=== PATIENT | female | born 1995 | race Caucasian/White ===

== ENCOUNTER 2019-11-10 07:06 | Emergency (ER) | payer BC ==
[2019-11-10] MEDS ORDERED: Acetaminophen 500 MG Tab PO ONE (07:29)
--- NOTE | 2019-11-10 07:35 | EDM.PDOC ---
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 LMP 09/07/2019. Began spotting on Monday and over last 24 hours has had increased bleeding w/ clots and pink tissue and lower abdominal cramping pains. Had US on 11/07 w/ FHR 125 and LIUP. Notes bhcg on 10/30 was 3284. Lower Pelvic Pain Score (Numeric/FACES): 6 - Related Data Allergies Allergy/AdvReac Type Severity Reaction Status Date / Time sulfamethoxazole Allergy Other Verified 11/10/19 07:29 [From Bactrim] trimethoprim [From Bactrim] Allergy Other Verified 11/10/19 07:29 Home Meds: Home Meds No122/Iron/Folic Acid [ Multi Tablet] 1 each PO DAILY 11/10/19 [History] ED ROS GENERAL - Review of Systems Review Of Systems: Comprehensive ROS is negative, except as noted in HPI. ED EXAM - Physical Exam Exam: See Below Exam Limited By: No Limitations General Appearance: Alert, WD/WN, No Apparent Distress Head: Atraumatic, Normocephalic Respiratory/Chest: No Respiratory Distress, No Accessory Muscle Use Cardiovascular: Normal Peripheral Pulses GI/Abdominal Exam: Soft, Non-Tender (Female) Exam: Other (patient elects to defer exam) Neurological: Alert Psychiatric: Tearful Skin Exam: Warm, Dry Course - Vital Signs Last Recorded V/S: Last Vital Signs Temp 97.6 F 11/10/19 07:30 Pulse 90 11/10/19 09:57 Resp 15 11/10/19 09:57 BP 135/69 11/10/19 09:57 Pulse Ox 98 11/10/19 09:57 - Orders/Labs/Meds Orders: Active Orders 24 hr Category Date Time Status OB 1st Tri Sgl 1st Gest [US] Stat Exams 11/10/19 07:29 Taken Labs: Laboratory Tests 11/10/19 11/10/19 11/10/19 Range/Units 08:33 08:33 08:33 WBC 10.87 (4.0-11.0) K/uL RBC 4.41 (4.30-5.90) M/uL Hgb 13.3 (12.0-16.0) g/dL Hct 38.6 (36.0-46.0) % MCV 87.5 (80.0-98.0) fL MCH 30.2 (27.0-32.0) pg MCHC 34.5 (31.0-37.0) g/dL RDW Std Deviation 37.6 (28.0-62.0) fl RDW Coeff of Cintia 12 (11.0-15.0) % Plt Count 269 (150-400) K/uL MPV 10.00 (7.40-12.00) fL Neut % (Auto) 68.1 (48.0-80.0) % Lymph % (Auto) 24.1 (16.0-40.0) % Tucker % (Auto) 7.2 (0.0-15.0) % Eos % (Auto) 0.4 (0.0-7.0) % Baso % (Auto) 0.2 (0.0-1.5) % Neut # (Auto) 7.4 H (1.4-5.7) K/uL Lymph # (Auto) 2.6 H (0.6-2.4) K/uL Tucker # (Auto) 0.8 (0.0-0.8) K/uL Eos # (Auto) 0.0 (0.0-0.7) K/uL Baso # (Auto) 0.0 (0.0-0.1) K/uL Nucleated RBC % 0.0 /100WBC Nucleated RBCs # 0 K/uL Sodium 137 (136-145) mmol/L Potassium 3.9 (3.5-5.1) mmol/L Chloride 101 (98-107) mmol/L Carbon Dioxide 24.5 (21.0-32.0) mmol/L BUN 8 (7.0-18.0) mg/dL Creatinine 0.9 (0.6-1.0) mg/dL Est Cr Clr Drug Dosing 79.04 mL/min Estimated GFR (MDRD) > 60.0 ml/min Glucose 80 (74-106) mg/dL Calcium 9.1 (8.5-10.1) mg/dL HCG, Quant 5265.0 mIU/mL Urine Color Urine Appearance Urine pH (5.0-8.0) Ur Specific [place] (1.001-1.035) Urine Protein (NEGATIVE) mg/dL Urine Glucose (UA) (NEGATIVE) mg/dL Urine Ketones (NEGATIVE) mg/dL Urine Occult Blood (NEGATIVE) Urine Nitrite (NEGATIVE) Urine Bilirubin (NEGATIVE) Urine Ictotest Urine Urobilinogen (<2.0) EU/dL Ur Leukocyte Esterase (NEGATIVE) Urine RBC (0-2/HPF) Urine WBC (0-5/HPF) Ur Epithelial Cells (NONE-FEW) Amorphous Sediment (NEGATIVE) Urine Bacteria (NEGATIVE) Blood Type 11/10/19 11/10/19 Range/Units 08:33 08:50 WBC (4.0-11.0) K/uL RBC (4.30-5.90) M/uL Hgb (12.0-16.0) g/dL Hct (36.0-46.0) % MCV (80.0-98.0) fL MCH (27.0-32.0) pg MCHC (31.0-37.0) g/dL RDW Std Deviation (28.0-62.0) fl RDW Coeff of Cintia (11.0-15.0) % Plt Count (150-400) K/uL MPV (7.40-12.00) fL Neut % (Auto) (48.0-80.0) % Lymph % (Auto) (16.0-40.0) % Tucker % (Auto) (0.0-15.0) % Eos % (Auto) (0.0-7.0) % Baso % (Auto) (0.0-1.5) % Neut # (Auto) (1.4-5.7) K/uL Lymph # (Auto) (0.6-2.4) K/uL Tucker # (Auto) (0.0-0.8) K/uL Eos # (Auto) (0.0-0.7) K/uL Baso # (Auto) (0.0-0.1) K/uL Nucleated RBC % /100WBC Nucleated RBCs # K/uL Sodium (136-145) mmol/L Potassium (3.5-5.1) mmol/L Chloride (98-107) mmol/L Carbon Dioxide (21.0-32.0) mmol/L BUN (7.0-18.0) mg/dL Creatinine (0.6-1.0) mg/dL Est Cr Clr Drug Dosing mL/min Estimated GFR (MDRD) ml/min Glucose (74-106) mg/dL Calcium (8.5-10.1) mg/dL HCG, Quant mIU/mL Urine Color YELLOW Urine Appearance CLOUDY Urine pH 5.0 (5.0-8.0) Ur Specific [place] >= 1.030 (1.001-1.035) Urine Protein 30 H (NEGATIVE) mg/dL Urine Glucose (UA) NEGATIVE (NEGATIVE) mg/dL Urine Ketones NEGATIVE (NEGATIVE) mg/dL Urine Occult Blood LARGE H (NEGATIVE) Urine Nitrite POSITIVE H (NEGATIVE) Urine Bilirubin SMALL H (NEGATIVE) Urine Ictotest NEGATIVE Urine Urobilinogen 0.2 (<2.0) EU/dL Ur Leukocyte Esterase TRACE H (NEGATIVE) Urine RBC 8-10 (0-2/HPF) Urine WBC 3-5 (0-5/HPF) Ur Epithelial Cells OCCASIONAL (NONE-FEW) Amorphous Sediment MODERATE (NEGATIVE) Urine Bacteria 2+ H (NEGATIVE) Blood Type A POSITIVE Meds: Medications Discontinued Medications Generic Name Dose Route Start Last Admin Trade Name Freq PRN Reason Stop Dose Admin Acetaminophen 1,000 mg 11/10/19 07:29 11/10/19 08:40 Tylenol Extra Strength PO 11/10/19 07:30 1,000 mg ONETIME ONE Administration - Re-Assessments/Exams Free Text/Narrative Re-Assessment/Exam: 11/10/19 07:34 Patient presents with vaginal bleeding in first trimester. Will get labs including bhcg level. Will get pelvic US to assess viability. Free Text/Narrative Re-Assessment/Exam: 11/10/19 10:11 No FHR on US imaging. No evidence ectopic. Will d/c with OB f/u, return precautions discussed at length. 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 Departure - Departure Time of Disposition: 10:12 Disposition: Home, Self-Care 01 Condition: Good Clinical Impression: Incomplete - Discharge Information Instructions: Incomplete Miscarriage Referrals: PMD, PMD [Other] Forms: ED Department Discharge Additional Instructions: The following information is given to patients seen in the emergency department who are being discharged to home. This information is to outline your options for follow-up care. We provide all patients seen in our emergency department with a follow-up referral. The need for follow-up, as well as the timing and circumstances, are variable depending upon the specifics of your emergency department visit. If you don't have a primary care physician on staff, we will provide you with a referral. We always advise you to contact your personal physician following an emergency department visit to inform them of the circumstance of the visit and for follow-up with them and/or the need for any referrals to a consulting specialist. The emergency department will also refer you to a specialist when appropriate. This referral assures that you have the opportunity for follow-up care with a specialist. All of these measure are taken in an effort to provide you with optimal care, which includes your follow-up. Under all circumstances we always encourage you to contact your private physician who remains a resource for coordinating your care. When calling for follow-up care, please make the office aware that this follow-up is from your recent emergency room visit. If for any reason you are refused follow-up, please contact the [facility] Emergency Department at and asked to speak to the emergency department charge nurse. Sepsis Event Note (ED) - Focused Exam Vital Signs: Vital Signs Temp Pulse Resp BP Pulse Ox 11/10/19 09:57 90 15 135/69 98 11/10/19 07:30 97.6 F 119 H 15 151/89 H 96 - My Orders Last 24 Hours: My Active Orders 11/10/19 07:29 OB 1st Tri Sgl 1st Gest [US] Stat - Assessment/Plan Last 24 Hours: My Active Orders 11/10/19 07:29 OB 1st Tri Sgl 1st Gest [US] Stat
[2019-11-10 09:37] LABS: BLOOD UREA NITROGEN,BUN 8 mg/dL (7.0-18.0); CARBON DIOXIDE,CO2 24.5 mmol/L (21.0-32.0); CHLORIDE,CL 101 mmol/L (98-107); GLUCOSE RANDOM 80 mg/dL (74-106); POTASSIUM,K 3.9 mmol/L (3.5-5.1); SODIUM,NA 137 mmol/L (136-145)
--- NOTE | 2019-11-10 10:56 | US ---
1st trimester obstetrical ultrasound: Multiple real-time images were obtained transvaginally. Comparison: No previous study for current . Dates: Current ultrasound: JELLY 07/01/20, gestational age 6 weeks 4 days Single intrauterine gestation is seen. pole is identified. Yolk sac is noted. Minimal subchorionic hemorrhage is noted. Ovaries are within normal limits. Measurements: [place]-rump length: 0.68 cm - 6 weeks 4 days Heart rate: None was measured Impression: 1. Single intrauterine gestation. Dates as noted above. 2. Small subchorionic hemorrhage. 3. No heart activity is seen. If patient does not miscarry, recommend repeat study in 11 days to confirm nonviable . Diagnostic code #3 This report was dictated in MDT
== END 2019-11-10 10:24 | disposition home or self-care (01) ==
LOC: MW.ED 07:06
DX: O03.4 Incomplete spontaneous abortion without complication (principal); Z88.2 Allergy status to sulfonamides
CPT/HCPCS: 36415; 76801; 80048; 81001; 84702; 85025; 86900; 86901; 99284; A9270; 99282

== ENCOUNTER 2021-01-18 05:15 | Inpatient (IN) | payer BC ==
[2021-01-18] MEDS ORDERED: Misoprostol 25 MCG (1/4 of 100 MCG) Tab VAG PRN (05:19)
[2021-01-18] MEDS ORDERED: Lidocaine 1% 50 ML MDV INJECT PRN (05:19)
[2021-01-18] MEDS ORDERED: Sodium Chloride 0.9% 2.5 ML Syringe FLUSH PRN (05:19)
[2021-01-18] MEDS ORDERED: Water For Irrigation,Sterile 1,000 ML Container IRR PRN (05:19)
[2021-01-18] MEDS ORDERED: Methylergonovine 0.2 MG/1 ML Amp IM PRN (05:19)
[2021-01-18] MEDS ORDERED: Sodium Chloride 0.9% 10 ML Syringe FLUSH PRN (05:19)
[2021-01-18] MEDS ORDERED: Terbutaline 1 MG/ML SDV SUBCUT PRN (05:19)
[2021-01-18] MEDS ORDERED: Nalbuphine 10 MG/1 ML Vial IVPUSH PRN (05:19)
[2021-01-18] MEDS ORDERED: Misoprostol 200 MCG Tab PO PRN (05:19)
[2021-01-18] MEDS ORDERED: Sodium Chloride 0.9% 10 ML SDV IV PRN (05:19)
[2021-01-18] MEDS ORDERED: Carboprost Tromethamine 250 MCG/1 ML Amp IM PRN (05:19)
[2021-01-18] MEDS ORDERED: Tranexamic Acid 1,000 MG in Sodium Chloride 0.9% 100 ML IV PRN (05:19)
[2021-01-18] MEDS ORDERED: Ondansetron 4 MG/2 ML SDV IVPUSH PRN (05:19)
[2021-01-18] MEDS ORDERED: Butorphanol 1 MG/ML SDV IVPUSH PRN (05:19)
[2021-01-18] MEDS ORDERED: Oxytocin/0.9 % Sodium Chloride 30 UNIT/500 ML BAG IV SCH ×2 (05:30→11:00)
[2021-01-18] MEDS: Misoprostol 25 MCG (1/4 of 100 MCG) Tab VAG PRN ×3 (06:01→14:15)
[2021-01-18] MEDS ORDERED: ePHEDrine 50 MG/ML SDV IVPUSH PRN (19:00)
[2021-01-18] MEDS ORDERED: Ropivacaine 0.2% 2MG/ML 200 ML Bag EPIDUR SCH (19:00)
[2021-01-18] MEDS: Lactated Ringers 1,000 ML IV SCH ×3 (19:08→21:18)
[2021-01-18] MEDS ORDERED: Ropivacaine HCl/PF 200 ML ONE (20:14)
--- NOTE | 2021-01-18 20:45 | PCM.PREANE ---
Preanesthetic Assessment - Anesthesia/Transfusion/Family Hx Anesthesia History: Prior Anesthesia Without Reaction Family History of Anesthesia Reaction: No - Review of Systems General: No Symptoms Pulmonary: No Symptoms Cardiovascular: Other (Orthostatic Hypotension) Gastrointestinal: No Symptoms, Other (GERD) Neurological: No Symptoms Other: Reports: None - Physical Assessment NPO Status Date: 01/18/21 NPO Status Time: 05:00 Height: 1.57 m Weight: 78.471 kg ASA Class: 2 Mental Status: Alert & Oriented x3 Airway Class: Mallampati = 2 Dentition: Reports: Normal Dentition Thyro-Mental Finger Breadths: 3 Mouth Opening Finger Breadths: 3 ROM/Head Extension: Full Lungs: Clear to Auscultation, Normal Respiratory Effort Cardiovascular: Regular Rate, Regular Rhythm - Lab Values: Laboratory Last Values WBC 10.19 K/uL (4.0-11.0) 01/18/21 05:30 RBC 3.91 M/uL (4.30-5.90) L 01/18/21 05:30 Hgb 11.8 g/dL (12.0-16.0) L 01/18/21 05:30 Hct 34.2 % (36.0-46.0) L 01/18/21 05:30 MCV 87.5 fL (80.0-98.0) 01/18/21 05:30 MCH 30.2 pg (27.0-32.0) 01/18/21 05:30 MCHC 34.5 g/dL (31.0-37.0) 01/18/21 05:30 RDW Std Deviation 38.9 fl (28.0-62.0) 01/18/21 05:30 RDW Coeff of Cintia 12 % (11.0-15.0) 01/18/21 05:30 Plt Count 211 K/uL (150-400) 01/18/21 05:30 MPV 10.10 fL (7.40-12.00) 01/18/21 05:30 Nucleated RBC % 0.0 /100WBC 01/18/21 05:30 Nucleated RBCs # 0 K/uL 01/18/21 05:30 Blood Type A POSITIVE 01/18/21 05:30 Antibody Screen NEGATIVE 01/18/21 05:30 - Allergies Allergies/Adverse Reactions: Allergies Allergy/AdvReac Type Severity Reaction Status Date / Time sulfamethoxazole Allergy Other Verified 01/18/21 05:40 [From Bactrim] trimethoprim [From Bactrim] Allergy Other Verified 01/18/21 05:40 - Blood Blood Available: Yes Product(s) Available: PRBC (Type and Screen) - Anesthesia Plan Pre-Op Medication Ordered: None - Acknowledgements Anesthesia Type Planned: Epidural Pt an Appropriate Candidate for the Planned Anesthesia: Yes Alternatives and Risks of Anesthesia Discussed w Pt/Guardian: Yes Pt/Guardian Understands and Agrees with Anesthesia Plan: Yes PreAnesthesia Questionnaire HEENT History: Reports: None Cardiovascular History: Reports: None Respiratory History: Reports: None Gastrointestinal History: Reports: None Genitourinary History: Reports: None [employer] History: Reports: Ectopic Other OB/BYN History: Methotrexate Therapy Musculoskeletal History: Reports: None Neurological History: Reports: None Psychiatric History: Reports: None Endocrine/Metabolic History: Reports: None Hematologic History: Reports: None Immunologic History: Reports: None Oncologic (Cancer) History: Reports: None Dermatologic History: Reports: None - Past Surgical History Head Surgeries/Procedures: Reports: None HEENT Surgical History: Reports: Other (See Below) Other HEENT Surgeries/Procedures: [place] Teeth Extraction Cardiovascular Surgical History: Reports: None Respiratory Surgical History: Reports: None GI Surgical History: Reports: None Female Surgical History: Reports: None Endocrine Surgical History: Reports: None Neurological Surgical History: Reports: None Musculoskeletal Surgical History: Reports: None Oncologic Surgical History: Reports: None Dermatological Surgical History: Reports: None - SUBSTANCE USE Tobacco Use Status *Q: Former Tobacco User Tobacco Use Within Last Twelve Months: No Second Hand Smoke Exposure: No Recreational Drug Use History: No - HOME MEDS Home Medications: Home Meds Nitrofurantoin Monohyd/M-Cryst [Macrobid 100 mg Capsule] 100 mg PO BID 7 Days #14 capsule 11/10/19 [Rx] No122/Iron/Folic Acid [ Multi Tablet] 1 each PO DAILY 11/10/19 [History] - CURRENT (IN HOUSE) MEDS Current Meds: Current Medications Butorphanol Tartrate (Butorphanol 1 Mg/Ml Sdv) 1 mg IVPUSH Q1H PRN PRN Reason: Pain (severe 7-10) Last Admin: 01/18/21 17:20 Dose: 1 mg Documented by: Carboprost Tromethamine (Carboprost Tromethamine 250 Mcg/1 Ml Amp) 250 mcg IM ASDIRECTED PRN PRN Reason: Post Hemorrhage Oxytocin/Sodium Chloride (Oxytocin 30 Unit In Ns 0.9% 500 Ml Premix) 30 unit in 500 mls @ 2 mls/hr IV TITRATE DOMINIQUE; Protocol Tranexamic Acid 1,000 mg/ (Sodium Chloride) 110 mls @ 660 mls/hr IV ONETIME PRN PRN Reason: Bleeding Oxytocin/Sodium Chloride (Oxytocin 30 Unit In Ns 0.9% 500 Ml Premix) 30 unit in 500 mls @ 2 mls/hr IV TITRATE DOMINIQUE; Protocol Lactated Ringer's (Ringers, Lactated) 1,000 mls @ 150 mls/hr IV ASDIRECTED DOMINIQUE Last Admin: 01/18/21 20:18 Dose: 999 mls/hr Documented by: Lidocaine HCl (Lidocaine 1% 50 Ml Mdv) 50 ml INJECT ONETIME PRN PRN Reason: Laceration repair Methylergonovine Maleate (Methylergonovine 0.2 Mg/1 Ml Amp) 0.2 mg IM ASDIRECTED PRN PRN Reason: Post Hemorrhage Misoprostol (Misoprostol 200 Mcg Tab) 200 mcg PO ONETIME PRN PRN Reason: Post Hemorrhage Misoprostol (Misoprostol 25 Mcg (1/4 Of 100 Mcg) Tab) 25 mcg VAG ONETIME PRN PRN Reason: Cervical Ripening Misoprostol (Misoprostol 25 Mcg (1/4 Of 100 Mcg) Tab) 25 mcg VAG Q4H PRN PRN Reason: Cervical Ripening Last Admin: 01/18/21 14:15 Dose: 25 mcg Documented by: Nalbuphine HCl (Nalbuphine 10 Mg/1 Ml Vial) 10 mg IVPUSH Q1H PRN PRN Reason: Pain (severe 7-10) Ondansetron HCl (Ondansetron 4 Mg/2 Ml Sdv) 4 mg IVPUSH Q4H PRN PRN Reason: Nausea/Vomiting Sodium Chloride (Sodium Chloride 0.9% 10 Ml Syringe) 10 ml FLUSH ASDIRECTED PRN PRN Reason: Keep Vein Open Sodium Chloride (Sodium Chloride 0.9% 2.5 Ml Syringe) 2.5 ml FLUSH ASDIRECTED PRN PRN Reason: Keep Vein Open Sodium Chloride (Sodium Chloride 0.9% 10 Ml Sdv) 10 ml IV ASDIRECTED PRN PRN Reason: IV Use Sterile Water (Water For Irrigation,Sterile 1,000 Ml Container) 1,000 ml IRR ASDIRECTED PRN PRN Reason: delivery Terbutaline Sulfate (Terbutaline 1 Mg/Ml Sdv) 0.25 mg SUBCUT ASDIRECTED PRN PRN Reason: Tacysystole Discontinued Medications Ropivacaine (Naropin 0.2%) Confirm Administered Dose 200 mls @ as directed .ROUTE .STK-MED ONE Stop: 01/18/21 20:15 Miscellaneous Medication (Phenylephrine Hcl In 0.9% Nacl 1 Mg/10 Ml Syringe) Confirm Administered Dose 1 mg .ROUTE .STK-MED ONE Stop: 01/18/21 20:28
--- NOTE | 2021-01-18 20:48 | PCM.POSTAN ---
POST ANESTHESIA ASSESSMENT - MENTAL STATUS Mental Status: Alert - RESPIRATORY Respiratory Status: Respiratory Rate WNL, Airway Patent, O2 Saturation Stable - CARDIOVASCULAR CV Status: Pulse Rate WNL, Blood Pressure Stable - GASTROINTESTINAL GI Status: No Symptoms - POST OP HYDRATION Hydration Status: Adequate & Stable
--- NOTE | 2021-01-18 20:48 | PCM.SN.2 ---
Time Documentation - Pre-Procedure Checklist Attending Provider Aware: Yes Chart Reviewed: Yes Consent Signed: Yes Labs Reviewed: Yes VS/FHR Reviewed: Yes Patient Identification Confirmation Method: Reports: Chart Visual, Verbal Patient Pt an Appropriate Candidate for the Planned Anesthesia: Yes Alternatives and Risks of Anesthesia Discussed w Pt/Guardian: Yes - Procedure Procedure Start Date: 01/18/21 Procedure Start Time: 19:[address]: Reports: Blood Pressure, Heart Rate, SPO2 Functional IV: Yes Safety Measures: Reports: Patient Identified, Procedure Verified, Site Verified, Procedure Time Out Patient Position: Reports: Sitting Prep: Reports: Betadine x3 Local Anesthetic: Reports: Intradermal Wheal w Lidocaine 1% (3 ml) Regional Placement Level: Reports: L3-4 Needle: Reports: 17 g Touhy Approach: Reports: Midline Technique: Reports: KISHAN Glass Syringe KISHAN Needle Depth (cm): 5 cm Parasthesia: Reports: None Fluid Obtained: Reports: None Catheter Depth at Skin (cm): 13 cm Test Dose Time: 20:10 Test Dose Medication: Reports: Lidocaine 1.5% w Epinephrine 1:200,000 Test Dose Response: Reports: Negative Loading Dose Time: 20:20 Loading Dose Medication: Ropivicaine 0.2% Loading Dose Patient Position: Supine Continuous Infusion Start Time: 20:21 Continuous Infusion Medication: Ropivicaine 0.2% Continuous Infusion Rate: 12 Continuous Infusion PCS Bolus Option: 4 Continuous Infusion Lockout Dose (cc/hr): 15 Patient Position Post Placement: Reports: Supline/LEANNA Post-procedure Pain Level: 3 Level Achieved: T6 VS and FHR Monitored in Unit Post Placement: Yes Procedure End Date: 01/18/21 Procedure End Time: 20:57 Procedure Comment: Sterile technique used throughout
[2021-01-18] MEDS ORDERED: ePHEDrine 50 MG/ML SDV ONE (22:41)
[2021-01-18] MEDS ORDERED: Glycopyrrolate 0.2 MG/ML SDV ONE (22:42)
[2021-01-18] MEDS ORDERED: Lidocaine 2% with EPINEPHrine 1:200,000 20 ML SDV ONE (22:42)
[2021-01-18] MEDS ORDERED: Sodium Chloride 0.9% 20 ML ONE (22:42)
[2021-01-19] MEDS ORDERED: oxyCODONE 5 MG Tab PO PRN (00:48)
[2021-01-19] MEDS ORDERED: Bisacodyl 10 MG Supp RECTAL PRN (00:48)
[2021-01-19] MEDS ORDERED: Benzocaine/Menthol 20%-0.5% Spray 78 GM Cannister TOP PRN (00:48)
[2021-01-19] MEDS ORDERED: Lanolin 100% Cream 7 GM Tube TOP PRN (00:48)
--- NOTE | 2021-01-19 00:54 | PCM.DEL ---
L & D Note - General Info Date of Service: 01/19/21 Mother's Due Date: 01/25/21 - Delivery Note Labor: Spontaneous Cervical Ripening Method: Balloon Device, Misoprostil (x3 doses) Delivery Outcome: Livebirth Infant Delivery Method: Spontaneous Vaginal Delivery-Single Infant Delivery Mode: Spontaneous Presentation: Vertex Nuchal Cord: Present (x1), Reduced (after delivery of body) Anesthesia Type: Epidural Amniotic Fluid Description: Clear Episiotomy Type: None Laceration: 1st Degree, Perineal Suture type: Vicryl Suture size: 3-0 Placenta: Intact, Spontaneous Cord: 3 Vessels Estimated Blood Loss: 400 Resuscitation Needed: No : Stimulated, Warmed Score 1 min: 8 Score 5 min: 9 Delivery Comments (Free Text/Narrative):: Live female infant, weight 3060g - General Info Date of Service: 01/19/21 - Patient Data Weight - Most Recent: 78.471 kg Lab Results Last 24 Hours: Laboratory Results - last 24 hr 01/18/21 01/18/21 Range/Units 05:30 05:30 WBC 10.19 (4.0-11.0) K/uL RBC 3.91 L (4.30-5.90) M/uL Hgb 11.8 L (12.0-16.0) g/dL Hct 34.2 L (36.0-46.0) % MCV 87.5 (80.0-98.0) fL MCH 30.2 (27.0-32.0) pg MCHC 34.5 (31.0-37.0) g/dL RDW Std Deviation 38.9 (28.0-62.0) fl RDW Coeff of [place] 12 (11.0-15.0) % Plt Count 211 (150-400) K/uL MPV 10.10 (7.40-12.00) fL Nucleated RBC % 0.0 /100WBC Nucleated RBCs # 0 K/uL Blood Type A POSITIVE Antibody Screen NEGATIVE Med Orders - Current: Current Medications Acetaminophen (Acetaminophen 500 Mg Tab) 1,000 mg PO Q6H PRN PRN Reason: Pain (mild 1-3) Benzocaine/Menthol (Benzocaine/Menthol 20%-0.5% [place] 78 Gm Cannister) 78 gm TOP ASDIRECTED PRN PRN Reason: Perineal Comfort Measure Bisacodyl (Bisacodyl 10 Mg Supp) 10 mg RECTAL ONETIME PRN PRN Reason: Constipation Butorphanol Tartrate (Butorphanol 1 Mg/Ml Sdv) 1 mg IVPUSH Q1H PRN PRN Reason: Pain (severe 7-10) Last Admin: 01/18/21 17:20 Dose: 1 mg Documented by: Carboprost Tromethamine (Carboprost Tromethamine 250 Mcg/1 Ml Amp) 250 mcg IM ASDIRECTED PRN PRN Reason: Post Hemorrhage Docusate Sodium (Docusate Sodium 100 Mg Cap) 100 mg PO Q12H PRN PRN Reason: Constipation Emollient Ointment (Lanolin 100% Cream 7 Gm Tube) 0 gm TOP ASDIRECTED PRN PRN Reason: Sore Nipples Oxytocin/Sodium Chloride (Oxytocin 30 Unit In Ns 0.9% 500 Ml Premix) 30 unit in 500 mls @ 2 mls/hr IV TITRATE DOMINIQUE; Protocol Tranexamic Acid 1,000 mg/ (Sodium Chloride) 110 mls @ 660 mls/hr IV ONETIME PRN PRN Reason: Bleeding Oxytocin/Sodium Chloride (Oxytocin 30 Unit In Ns 0.9% 500 Ml Premix) 30 unit in 500 mls @ 2 mls/hr IV TITRATE DOMINIQUE; Protocol Lactated Ringer's (Ringers, Lactated) 1,000 mls @ 150 mls/hr IV ASDIRECTED DOMINIQUE Last Admin: 01/18/21 21:18 Dose: 150 mls/hr Documented by: Ibuprofen (Ibuprofen 800 Mg Tab) 800 mg PO Q8H PRN PRN Reason: Cramping Lidocaine HCl (Lidocaine 1% 50 Ml Mdv) 50 ml INJECT ONETIME PRN PRN Reason: Laceration repair Methylergonovine Maleate (Methylergonovine 0.2 Mg/1 Ml Amp) 0.2 mg IM ASDIRECTED PRN PRN Reason: Post Hemorrhage Misoprostol (Misoprostol 200 Mcg Tab) 200 mcg PO ONETIME PRN PRN Reason: Post Hemorrhage Misoprostol (Misoprostol 25 Mcg (1/4 Of 100 Mcg) Tab) 25 mcg VAG ONETIME PRN PRN Reason: Cervical Ripening Misoprostol (Misoprostol 25 Mcg (1/4 Of 100 Mcg) Tab) 25 mcg VAG Q4H PRN PRN Reason: Cervical Ripening Last Admin: 01/18/21 14:15 Dose: 25 mcg Documented by: Nalbuphine HCl (Nalbuphine 10 Mg/1 Ml Vial) 10 mg IVPUSH Q1H PRN PRN Reason: Pain (severe 7-10) Ondansetron HCl (Ondansetron 4 Mg/2 Ml Sdv) 4 mg IVPUSH Q4H PRN PRN Reason: Nausea/Vomiting Oxycodone HCl (Oxycodone 5 Mg Tab) 5 mg PO Q2H PRN PRN Reason: Pain (severe 7-10) Sodium Chloride (Sodium Chloride 0.9% 10 Ml Syringe) 10 ml FLUSH ASDIRECTED PRN PRN Reason: Keep Vein Open Sodium Chloride (Sodium Chloride 0.9% 2.5 Ml Syringe) 2.5 ml FLUSH ASDIRECTED PRN PRN Reason: Keep Vein Open Sodium Chloride (Sodium Chloride 0.9% 10 Ml Sdv) 10 ml IV ASDIRECTED PRN PRN Reason: IV Use Sterile Water (Water For Irrigation,Sterile 1,000 Ml Container) 1,000 ml IRR ASDIRECTED PRN PRN Reason: delivery Terbutaline Sulfate (Terbutaline 1 Mg/Ml Sdv) 0.25 mg SUBCUT ASDIRECTED PRN PRN Reason: Tacysystole Witch Bonnie (Witch Bonnie Medicated Pads 40/Jar) 1 pad TOP ASDIRECTED PRN PRN Reason: comfort care Discontinued Medications Ephedrine Sulfate (Ephedrine 50 Mg/Ml Sdv) Confirm Administered Dose 50 mg .ROUTE .STK-MED ONE Stop: 01/18/21 22:42 Glycopyrrolate (Glycopyrrolate 0.2 Mg/Ml Sdv) Confirm Administered Dose 0.4 mg .ROUTE .STK-MED ONE Stop: 01/18/21 22:43 Ropivacaine (Naropin 0.2%) Confirm Administered Dose 200 mls @ as directed .ROUTE .STK-MED ONE Stop: 01/18/21 20:15 Sodium Chloride (Normal Saline) Confirm Administered Dose 40 mls @ as directed .ROUTE .STK-MED ONE Stop: 01/18/21 22:43 Lidocaine/Epinephrine (Lidocaine 2% With Epinephrine 1:200,000 20 Ml Sdv) Confirm Administered Dose 20 ml .ROUTE .STK-MED ONE Stop: 01/18/21 22:43 Miscellaneous Medication (Phenylephrine Hcl In 0.9% Nacl 1 Mg/10 Ml Syringe) Confirm Administered Dose 1 mg .ROUTE .STK-MED ONE Stop: 01/18/21 20:28 - Problem List & Annotations (1) Vaginal delivery SNOMED Code(s): 372317693 Code(s): O80 - ENCOUNTER FOR FULL-TERM UNCOMPLICATED DELIVERY Status: Acute Current Visit: Yes - Problem List Review Problem List Initiated/Reviewed/Updated: Yes - My Orders Last 24 Hours: My Active Orders 01/18/21 05:15 Admission Status [Patient Status] [ADT] Routine 01/18/21 05:19 Patient Status [ADT] Routine Bedrest Bathroom Privileges [RC] ASDIRECTED Communication Order [RC] ASDIRECTED Communication Order [RC] ASDIRECTED Communication Order [RC] ASDIRECTED Heart Tones [RC] CONTINUOUS May Shower [RC] ASDIRECTED Notify Provider [RC] PRN Notify Provider [RC] PRN Notify Provider [RC] PRN Notify Provider [RC] STAT Oxygen Therapy [RC] ASDIRECTED Up ad Mar [RC] ASDIRECTED Vaginal Exam [RC] PRN Vaginal Exam [RC] PRN Vital Signs [RC] PER UNIT ROUTINE Vital Signs [RC] PER UNIT ROUTINE Butorphanol [Stadol] 1 mg IVPUSH Q1H PRN Carboprost Tromethamine [Hemabate DS] 250 mcg IM ASDIRECTED PRN Lidocaine 1% [Xylocaine 1%] 50 ml INJECT ONETIME PRN Methylergonovine [Methergine] 0.2 mg IM ASDIRECTED PRN Nalbuphine [Nubain] 10 mg IVPUSH Q1H PRN Ondansetron [Zofran] 4 mg IVPUSH Q4H PRN Sodium Chloride 0.9% [Normal Saline] 10 ml IV ASDIRECTED PRN Sodium Chloride 0.9% [Saline Flush] 10 ml FLUSH ASDIRECTED PRN Sodium Chloride 0.9% [Saline Flush] 2.5 ml FLUSH ASDIRECTED PRN Terbutaline [Brethine] 0.25 mg SUBCUT ASDIRECTED PRN Tranexamic Acid [Cyklokapron] 1,000 mg Sodium Chloride 0.9% [Normal Saline] 100 ml IV ONETIME Water For Irrigation,Sterile [Sterile Water for Irrigation] 1,000 ml IRR ASDIRECTED PRN miSOPROStoL [Cytotec] 200 mcg PO ONETIME PRN miSOPROStoL [Cytotec] 25 mcg VAG ONETIME PRN miSOPROStoL [Cytotec] 25 mcg VAG Q4H PRN Scalp Electrode [WOMSER] Per Unit Routine Peripheral IV Insertion Adult [OM.PC] Routine Resuscitation Status Routine 01/18/21 05:30 RPR (SYPHILIS SERO) W/ RFLX [REF] Routine Lactated Ringers [Ringers, Lactated] 1,000 ml IV ASDIRECTED Oxytocin/0.9 % Sodium Chloride [Oxytocin 30 Unit in NS 0.9% 500 ML Premix] 30 unit in 500 ml IV TITRATE Medication Administration Instruction [OM.PC] Q3H 01/18/21 11:00 Oxytocin/0.9 % Sodium Chloride [Oxytocin 30 Unit in NS 0.9% 500 ML Premix] 30 unit in 500 ml IV TITRATE 01/19/21 00:48 Patient Status [ADT] Routine Cooling Warming Measures [RC] ASDIRECTED May Shower [RC] ASDIRECTED Notify Provider Vital Signs [RC] ASDIRECTED Up ad Mar [RC] ASDIRECTED Vital Signs [RC] PER UNIT ROUTINE Acetaminophen [Tylenol Extra Strength] 1,000 mg PO Q6H PRN Benzocaine/Menthol [Dermoplast Pain Relief 20%-0.5% [place]] 78 gm TOP ASDIRECTED PRN Docusate Sodium [Colace] 100 mg PO Q12H PRN Ibuprofen [Motrin] 800 mg PO Q8H PRN Lanolin [Lansinoh HPA] See Dose Instructions TOP ASDIRECTED PRN bisacodyL [Dulcolax] 10 mg RECTAL ONETIME PRN oxyCODONE 5 mg PO Q2H PRN witch Bonnie [Tucks] 1 pad TOP ASDIRECTED PRN Assess Lochia [WOMSER] Per Unit Routine Assess Uterine Involution [WOMSER] Per Unit Routine Breast Pump [WOMSER] Per Unit Routine Ice Therapy [OM.PC] Per Unit Routine Perineal Care [OM.PC] Per Unit Routine Peripheral IV Discontinue [OM.PC] Routine Sitz Bath [OM.PC] Per Unit Routine 01/19/21 Breakfast Regular Diet [DIET] 01/20/21 05:11 HEMOGLOBIN/HEMATOCRIT,HH [HEME] Timed - Assessment Assessment:: 25yo s/p at 39w1d - Plan Plan:: Admit to unit for routine care. A+, rubella immune, GBS negative.
--- NOTE | 2021-01-19 01:54 | OR ---
SURGEON: Kenia Mendez MD DATE OF PROCEDURE: 01/19/2021 PREOPERATIVE DIAGNOSES: 1. A 25-year-old G4, P0-0-3-0, at 39 weeks and 0 days' gestation. 2. Elective induction of labor. 3. GBS negative. POSTOPERATIVE DIAGNOSES: 1. A 25-year-old G4, P1-0-3-1, at 39 weeks and 1 days' gestation. 2. Elective induction of labor. 3. GBS negative. PROCEDURE: Spontaneous vaginal delivery and repair of first-degree perineal laceration. PRIMARY SURGEON: Kenia Mendez MD ANESTHESIA: Epidural. ESTIMATED BLOOD LOSS: 400 mL. FINDINGS: Live female infant in cephalic presentation. score of 8 and 9 at 1 and 5 minutes respectively. Weight 3060 g. Placenta intact with 3-vessel cord. First-degree perineal laceration along with bilateral periurethral and labial abrasions. Nuchal cord x1. INDICATIONS: This is a 25-year-old G4, P0-0-3-0, who presented at 39 weeks and 0 days' gestation for scheduled elective induction of labor. Upon presentation, her cervix was found to be 1 cm dilated. She received 2 doses of Cytotec for cervical ripening. A Cook Toth balloon was placed along with a 3rd dose of Cytotec. She began eliza every 1 to 2 minutes. She underwent spontaneous rupture of membranes with clear fluid noted and the Cook Toth balloon was removed. She was found to be 4 to 5 cm dilated. She received an epidural for pain control. She continued to progress quickly and had complete cervical dilation after 3 hours of epidural. She began pushing. DESCRIPTION OF PROCEDURE: I arrived to the room with head at +3 station. Over the next several contractions, she pushed and delivered a live female infant. Head was delivered followed by the shoulders and remainder of the body. Nuchal cord x1 was reduced after delivery of body. Infant was placed on the maternal abdomen. After approximately 60 seconds, the cord was clamped and cut. The placenta then delivered intact with 3-vessel cord via the Walker-Conti maneuver. Cord blood was obtained. The perineum was inspected and a first- degree perineal laceration was noted along with bilateral periurethral abrasions. Perineal laceration was repaired to anatomy and hemostasis with 3-0 Vicryl suture. Fundus was firm below the umbilicus with minimal bleeding. The patient and infant tolerated the delivery well. [id number] / MODL /[id number] MTDD
[2021-01-19] MEDS: Ibuprofen 800 MG Tab PO PRN ×3 (04:15→20:23)
[2021-01-19] MEDS: Witch Hazel Medicated Pads 40/Jar TOP PRN (04:17)
[2021-01-19] MEDS: Acetaminophen 500 MG Tab PO PRN ×2 (08:21→18:04)
[2021-01-19] MEDS: Docusate Sodium 100 MG Cap PO PRN ×2 (08:22→20:23)
--- NOTE | 2021-01-19 15:10 | PCM48HPAN ---
Post Anesthesia Note - EVALUATION WITHIN 48HRS OF ANESTHETIC Vital Signs in Normal Range: Yes Patient Participated in Evaluation: Yes Respiratory Function Stable: Yes Airway Patent: Yes Cardiovascular Function Stable: Yes Hydration Status Stable: Yes Pain Control Satisfactory: Yes Nausea and Vomiting Control Satisfactory: Yes Mental Status Recovered: Yes Vital Signs: Last Vital Signs Temp 97.7 F 01/19/21 11:45 Pulse 69 01/19/21 11:45 Resp 14 01/19/21 11:45 BP 116/67 01/19/21 11:45 Pulse Ox 97 01/19/21 11:45
--- NOTE | 2021-01-19 15:48 | PCM48HPAN ---
Post Anesthesia Note - EVALUATION WITHIN 48HRS OF ANESTHETIC Vital Signs in Normal Range: Yes Patient Participated in Evaluation: Yes Respiratory Function Stable: Yes Airway Patent: Yes Cardiovascular Function Stable: Yes Hydration Status Stable: Yes Pain Control Satisfactory: Yes Nausea and Vomiting Control Satisfactory: Yes Mental Status Recovered: Yes Vital Signs: Last Vital Signs Temp 36.5 C 01/19/21 11:45 Pulse 69 01/19/21 11:45 Resp 14 01/19/21 11:45 BP 116/67 01/19/21 11:45 Pulse Ox 97 01/19/21 11:45 - COMMENTS/OBSERVATIONS Free Text/Narrative:: Pt states to being up walking with no weakness and no S&S of infection.
[2021-01-20] MEDS: Acetaminophen 500 MG Tab PO PRN (01:54)
[2021-01-20] MEDS: Docusate Sodium 100 MG Cap PO PRN (07:34)
[2021-01-20] MEDS: Ibuprofen 800 MG Tab PO PRN (07:34)
--- NOTE | 2021-01-20 08:39 | PCM.PNPP ---
- General Info Date of Service: 01/20/21 Subjective Update: Patient without complaints this morning. Functional Status: Reports: Pain Controlled, Tolerating Diet, Ambulating, Urinating - Review of Systems General: Reports: No Symptoms HEENT: Reports: No Symptoms Pulmonary: Reports: No Symptoms Cardiovascular: Reports: No Symptoms Gastrointestinal: Reports: No Symptoms Genitourinary: Reports: No Symptoms Musculoskeletal: Reports: No Symptoms Skin: Reports: No Symptoms Neurological: Reports: No Symptoms Psychiatric: Reports: No Symptoms - Patient Data Vital Signs - Most Recent: Last Vital Signs Temp 36.3 C 01/20/21 08:00 Pulse 72 01/20/21 08:00 Resp 18 01/20/21 08:00 BP 106/79 01/20/21 08:00 Pulse Ox 98 01/20/21 08:00 Weight - Most Recent: 78.471 kg Lab Results - Last 24 Hours: Laboratory Results - last 24 hr 01/20/21 Range/Units 05:25 Hgb 9.2 L (12.0-16.0) g/dL Hct 26.6 L (36.0-46.0) % Med Orders - Current: Current Medications Acetaminophen (Acetaminophen 500 Mg Tab) 1,000 mg PO Q6H PRN PRN Reason: Pain (mild 1-3) Last Admin: 01/20/21 01:54 Dose: 1,000 mg Documented by: Benzocaine/Menthol (Benzocaine/Menthol 20%-0.5% [place] 78 Gm Cannister) 78 gm TOP ASDIRECTED PRN PRN Reason: Perineal Comfort Measure Last Admin: 01/19/21 04:19 Dose: 1 spray Documented by: Bisacodyl (Bisacodyl 10 Mg Supp) 10 mg RECTAL ONETIME PRN PRN Reason: Constipation Butorphanol Tartrate (Butorphanol 1 Mg/Ml Sdv) 1 mg IVPUSH Q1H PRN PRN Reason: Pain (severe 7-10) Last Admin: 01/18/21 17:20 Dose: 1 mg Documented by: Carboprost Tromethamine (Carboprost Tromethamine 250 Mcg/1 Ml Amp) 250 mcg IM ASDIRECTED PRN PRN Reason: Post Hemorrhage Docusate Sodium (Docusate Sodium 100 Mg Cap) 100 mg PO Q12H PRN PRN Reason: Constipation Last Admin: 01/20/21 07:34 Dose: 100 mg Documented by: Emollient Ointment (Lanolin 100% Cream 7 Gm Tube) 0 gm TOP ASDIRECTED PRN PRN Reason: Sore Nipples Last Admin: 01/19/21 04:17 Dose: 1 applic Documented by: Ephedrine Sulfate (Ephedrine 50 Mg/Ml Sdv) 10 mg IVPUSH Q1M PRN PRN Reason: Hypotension Oxytocin/Sodium Chloride (Oxytocin 30 Unit In Ns 0.9% 500 Ml Premix) 30 unit in 500 mls @ 2 mls/hr IV TITRATE DOMINIQUE; Protocol Tranexamic Acid 1,000 mg/ (Sodium Chloride) 110 mls @ 660 mls/hr IV ONETIME PRN PRN Reason: Bleeding Oxytocin/Sodium Chloride (Oxytocin 30 Unit In Ns 0.9% 500 Ml Premix) 30 unit in 500 mls @ 2 mls/hr IV TITRATE DOMINIQUE; Protocol Last Titration: 01/19/21 01:00 Dose: 999 munits/min, 999 mls/hr Documented by: Lactated Ringer's (Ringers, Lactated) 1,000 mls @ 150 mls/hr IV ASDIRECTED DOMINIQUE Last Admin: 01/18/21 21:18 Dose: 150 mls/hr Documented by: Ibuprofen (Ibuprofen 800 Mg Tab) 800 mg PO Q8H PRN PRN Reason: Cramping Last Admin: 01/20/21 07:34 Dose: 800 mg Documented by: Lidocaine HCl (Lidocaine 1% 50 Ml Mdv) 50 ml INJECT ONETIME PRN PRN Reason: Laceration repair Methylergonovine Maleate (Methylergonovine 0.2 Mg/1 Ml Amp) 0.2 mg IM ASDIRECTED PRN PRN Reason: Post Hemorrhage Miscellaneous Medication (Phenylephrine Hcl In 0.9% Nacl 1 Mg/10 Ml Syringe) 0.1 mg IVPUSH Q1M PRN PRN Reason: Hypotension Misoprostol (Misoprostol 200 Mcg Tab) 200 mcg PO ONETIME PRN PRN Reason: Post Hemorrhage Misoprostol (Misoprostol 25 Mcg (1/4 Of 100 Mcg) Tab) 25 mcg VAG ONETIME PRN PRN Reason: Cervical Ripening Misoprostol (Misoprostol 25 Mcg (1/4 Of 100 Mcg) Tab) 25 mcg VAG Q4H PRN PRN Reason: Cervical Ripening Last Admin: 01/18/21 14:15 Dose: 25 mcg Documented by: Nalbuphine HCl (Nalbuphine 10 Mg/1 Ml Vial) 10 mg IVPUSH Q1H PRN PRN Reason: Pain (severe 7-10) Ondansetron HCl (Ondansetron 4 Mg/2 Ml Sdv) 4 mg IVPUSH Q4H PRN PRN Reason: Nausea/Vomiting Oxycodone HCl (Oxycodone 5 Mg Tab) 5 mg PO Q2H PRN PRN Reason: Pain (severe 7-10) Ropivacaine (Ropivacaine 0.2% 2mg/Ml 200 Ml Bag) 400 mg EPIDUR ASDIRECTED DOMINIQUE Sodium Chloride (Sodium Chloride 0.9% 10 Ml Syringe) 10 ml FLUSH ASDIRECTED PRN PRN Reason: Keep Vein Open Sodium Chloride (Sodium Chloride 0.9% 2.5 Ml Syringe) 2.5 ml FLUSH ASDIRECTED PRN PRN Reason: Keep Vein Open Sodium Chloride (Sodium Chloride 0.9% 10 Ml Sdv) 10 ml IV ASDIRECTED PRN PRN Reason: IV Use Sterile Water (Water For Irrigation,Sterile 1,000 Ml Container) 1,000 ml IRR ASDIRECTED PRN PRN Reason: delivery Terbutaline Sulfate (Terbutaline 1 Mg/Ml Sdv) 0.25 mg SUBCUT ASDIRECTED PRN PRN Reason: Tacysystole Witch Bonnie (Witch Bonnie Medicated Pads 40/Jar) 1 pad TOP ASDIRECTED PRN PRN Reason: comfort care Last Admin: 01/19/21 04:17 Dose: 1 pad Documented by: Discontinued Medications Ephedrine Sulfate (Ephedrine 50 Mg/Ml Sdv) Confirm Administered Dose 50 mg .ROUTE .STK-MED ONE Stop: 01/18/21 22:42 Glycopyrrolate (Glycopyrrolate 0.2 Mg/Ml Sdv) Confirm Administered Dose 0.4 mg .ROUTE .STK-MED ONE Stop: 01/18/21 22:43 Ropivacaine (Naropin 0.2%) Confirm Administered Dose 200 mls @ as directed .ROUTE .STK-MED ONE Stop: 01/18/21 20:15 Sodium Chloride (Normal Saline) Confirm Administered Dose 40 mls @ as directed .ROUTE .STK-MED ONE Stop: 01/18/21 22:43 Lidocaine/Epinephrine (Lidocaine 2% With Epinephrine 1:200,000 20 Ml Sdv) Confirm Administered Dose 20 ml .ROUTE .STK-MED ONE Stop: 01/18/21 22:43 Miscellaneous Medication (Phenylephrine Hcl In 0.9% Nacl 1 Mg/10 Ml Syringe) C onfirm Administered Dose 1 mg .ROUTE .STK-MED ONE Stop: 01/18/21 20:28 - Infant Interaction Disposition, : in Room with Family Interaction: Holding Feeding: Breastfed Infant; Nursed Well - Recovery Exam Fundal Tone: Firm Fundal Level: 1 Fingerbreadths Below Umbilicus Fundal Placement: Midline Lochia Amount: Scant Lochia Color: Rubra/Red Bladder Status: Voiding Urinary Elimination: Voided - Exam General: Alert, Oriented Neck: Supple Lungs: Normal Respiratory Effort GI/Abdominal Exam: Soft, Non-Tender, No Distention Extremities: Non-Tender, No Pedal Edema Skin: Warm, Dry, Intact Neurological: No New Focal Deficit Psy/Mental Status: Alert, Normal Affect, Normal Mood - Problem List & Annotations (1) Vaginal delivery SNOMED Code(s): 553742767 Code(s): O80 - ENCOUNTER FOR FULL-TERM UNCOMPLICATED DELIVERY Status: Acute Current Visit: Yes - Problem List Review Problem List Initiated/Reviewed/Updated: Yes - My Orders Last 24 Hours: My Active Orders 01/20/21 08:37 Ready for Discharge [RC] PER UNIT ROUTINE - Assessment Assessment:: 25yo s/p at 39w1d, PPD#1 - Plan Plan:: A+, rubella immune, GBS negative. Plan for discharge home today. Reviewed discharge instructions/precautions. All questions answered.
[2021-01-20] MEDS: Witch Hazel Medicated Pads 40/Jar TOP PRN (09:26)
== END 2021-01-20 10:35 | disposition home or self-care (01) | DRG 560 ==
LOC: MW.OBCHECK 05:15 → MW.OB 05:16 → OBSVTOIN 01-19 00:24 → MW.OB 01-19 04:21
PROVIDERS: ADMIT Obstetrics & Gynecology; ATTEND Obstetrics & Gynecology
PROC: 10E0XZZ Delivery of Products of Conception, External Approach (ICD-10-PCS; principal; 2021-01-19)
PROC: 0HQ9XZZ Repair Perineum Skin, External Approach (ICD-10-PCS; 2021-01-19)
PROC: 3E0P7VZ Introduction of Hormone into Female Reproductive, Via Natural or Artificial Opening (ICD-10-PCS; 2021-01-19)
PROC: 0U7C7ZZ Dilation of Cervix, Via Natural or Artificial Opening (ICD-10-PCS; 2021-01-19)
DX: O34.03 Maternal care for unspecified congenital malformation of uterus, third trimester (principal); Q51.810 Arcuate uterus; Z37.0 Single live birth; Z3A.39 39 weeks gestation of pregnancy; O70.0 First degree perineal laceration during delivery
CPT/HCPCS: 01967; 36415; 51702; 59025; 59200; 59409; 85014; 85018; 85027; 86592; 86850; 86900; 86901; A9270-GY; J0595; J2370; J2590; J2795; J3490; J7120